=== PATIENT | male | born 1990 | race Two or more races ===

== ENCOUNTER 2023-11-09 14:54 | Emergency (ER) | payer MEDICAID ==
[~2023-11-09] VITALS: Ht 177.8 cm; Wt 72.7 kg
[2023-11-09 14:59] VITALS: TEMP 98.1
[2023-11-09 16:51] LABS: BASOPHILS % (AUTO) 0.5 % (0.0-2.0); EOSINOPHILS % (AUTO) 1.3 % (1.0-6.0); HEMATOCRIT 45.1 % (41-53); HEMOGLOBIN 15.5 g/dL (13.5-17.5); LYMPHOCYTES # (AUTO) 1.9 K/uL (1.0-4.8); LYMPHOCYTES % (AUTO) 23.2 % (22.0-44.0); MEAN CORPUSCULAR HEMOGLOBIN 31.9 pg (26.0-34.0); MEAN CORPUSCULAR HGB CONC 34.3 G/dL (31.0-37.0); MEAN CORPUSCULAR VOLUME 93 fL (80-100); MONOCYTES # (AUTO) 0.6 K/uL (0.1-1.0); MONOCYTES % (AUTO) 6.9 % (2.0-9.0); NEUTROPHILS # (AUTO) 5.6 K/uL (1.8-7.7); NEUTROPHILS % (AUTO) 68.1 % (40.0-70.0); PLATELET COUNT (AUTO) 199 K/uL (150-450); RED BLOOD CELL COUNT(AUTO) 4.85 MIL/uL (4.50-5.90); RED CELL DISTRIBUTION WIDTH 13.8 % (11.5-14.5); WHITE BLOOD COUNT (AUTO) 8.3 K/uL (4.5-11.0)
[2023-11-09 17:00] LABS: ANION GAP 10 mmol/L (8-16); CALCIUM, TOTAL 8.4 mg/dL (8.8-10.5); CARBON DIOXIDE 27 mmol/L (22-29); CHLORIDE 99 mmol/L (98-107); CREATININE 1.29 mg/dL (0.60-1.30); GLOMERULAR FILTR. RATE CALC > 60 mL/min (>60); GLUCOSE,RANDOM 86 mg/dL (70-110); SODIUM SERUM 136 mmol/L (136-145); UREA NITROGEN, BLOOD 16 mg/dL (7-18)
[2023-11-09] MEDS: CLINDAMYCIN 600 MG/D5% WATER 50 ML IV ONE (17:09)
[2023-11-09 17:16] LABS: LACTIC ACID 0.9 mmol/L (0.4-2.0)
[2023-11-09] MEDS ORDERED: CLIN-142 PO (18:52)
[2023-11-09 19:02] VITALS: BP 126/67; PULSE 86; RESP 16; O2SAT 97
== END 2023-11-09 19:11 | disposition home or self-care (01) ==
LOC: EMS 14:54
DX: L03.113 Cellulitis of right upper limb (principal)
CPT/HCPCS: 99284; 96365; 80048; 83605; 85025; 36415; 73080; J3490